=== PATIENT | female | born 1995 | race Caucasian/White ===

== ENCOUNTER 2018-03-16 17:37 | Emergency (ER) | payer BC ==
--- NOTE | 2018-03-16 18:09 | EDPHY ---
HPI/HX/ROS/PE/MDM Narrative: CHIEF COMPLAINT: Headache HISTORY OF PRESENT ILLNESS: The patient is a 22 y/o female complaining of a headache onset 5 days ago. Starting 2 weeks ago she had a cold and developed heart palpitations associated with chest pain. The heart palpitations occur for 1-2 minutes and feel like her heart is beating too hard and too fast. Around this time she also decreased her caffeine use. After her cold-like symptoms improved she had blood work done at her functional physician (PCP) who then ordered a pituitary MRI, which she had done yesterday. For the first day of the headache it was intermittent. For the last 4 days the headache has been constant and she has felt dizzy. The headache is located behind her eyes and occasionally radiates to her temples and the base of her skull. She took Motrin without relief of her symptoms and states that nothing makes her symptoms better. Tonight light has aggravated her headache. Several months ago she had a similar headache which they thought was due to coughing too much. Patient denies a history of migraines. She has no further cold symptoms. No history of confusion. No vomiting the headache. No family history of aneurysmal brain bleed. No head trauma. No fever, chills, chest pain, shortness of breath, vomiting, diarrhea, urinary complaints, lightheadedness. REVIEW OF SYSTEMS: Aside from elements discussed in the HPI, a comprehensive 10-system review of systems was reviewed and is negative. PAST MEDICAL HISTORY: Hypothyroidism SOCIAL HISTORY: Single, friend at bedside, lives in [place] VITAL SIGNS: Reviewed by me VITAL SIGNS Reviewed by me. GENERAL: Well-developed, well-nourished, resting in a dark room. HEENT: Atraumatic. Eyes: PERRL, EOMI, no nystagmus. No icterus. No injection. Tenderness to percussion over the left frontal sinus. Mouth: moist mucous membranes. No erythema or lesions. Neck: No meningitis. Nontender to palpation. No adenopathy. Negative Kernig's. Negative Brudzinski's. No meningismus. LUNGS: Clear to auscultation bilaterally, no wheezes, rhonchi or rales. CARDIAC: Mild tachycardia, regular rhythm, no rubs, murmurs or gallops. ABDOMEN: Soft, nontender, nondistended, bowel sounds normal. BACK: No CVA tenderness. EXTREMITIES: No trauma. No edema. Range of motion is normal throughout. NEURO: Alert and oriented, cranial nerves II through XII are intact. Motor strength 5 over 5 in all major muscle groups. Sensation intact to light touch. Normal gait. SKIN: Warm and dry, no rash. PSYCHIATRIC: Normal mentation, no agitation. Portions of this note were transcribed by a medical transcriptionist. I personally performed a history, physical exam, medical decision making, and confirmed accuracy of information the transcribed note. ED Course: The patient is a 22 y/o female presenting with a headache onset 5 days ago and heart palpitations onset 2 weeks ago. On exam she has left frontal sinus tenderness to percussion. She also had a pituitary MRI ordered by her PCP yesterday. Migraine medications including Decadron 10 mg, Reglan 10 mg, 30mg IV Toradol and 25mg IV Benadryl ordered; labs and head CT ordered. 1849: Patient is tachycardic with a rate in the 170's, tremulous, and hyperventilating after receiving Toradol and Benadryl; EKG and 0.5mg IV Ativan ordered. She did not receive the Decadron or rate prior to the abrupt change in her vital signs. My examination she is anxious and hyperventilating; on a monitored appears to be sinus tachycardia however, EKG was not able to be obtained due to her tremulousness. When EKG was obtained her rate was closer to the 140 region. Monitor strips were reviewed. SVT versus sinus tachycardia is my interpretation of the monitor strip. 1850: 12-LEAD EKG: Please see the full report in [facility]. My interpretation: Sinus tachycardia with a rate of 134. 1929: Patient was too anxious for the CT; additional 1mg IV Ativan administered. 1951: MRI from health images was uploaded to our PACS system and read by Dr. Gay. Brain is normal with the exception of sphenoid sinus. The patient's pituitary gland looks normal. She is still has mildly tachycardic with a rate of 102 and her TSH is still pending. 2024: I spoke with the radiologist who reports that the patient has a normal head CT. 2044: Reassessed patient and discussed imaging reports. She is feeling improved after the Toradol and Benadryl. Heart rate has trended to under 100. Electrolytes are unremarkable. Patient's TSH today is normal. I did review her labs from her functional medicine physician which demonstrate normal TSH on 2 prior occasions. Patient will follow up with Cardiology concerning her palpitations and the event today with significant increased heart rate. I have also advised her to follow up with Endocrinology in given referral to Dr. Rashid as per her request. Regarding her headache, believe it is most likely related to sinusitis. She has improved with Toradol. I do not believe the patient needs further imaging studies or further evaluation with a LP. She understands reasons to return to the emergency department. MDM: After history was obtained, and the physical exam performed, a differential for headache was considered including, but not limited to, subarachnoid hemorrhage, migraine headache, tension headache and infectious causes such as meningitis, sinusitis, encephalitis. Differential diagnoses for the patient's sensation of palpitations was considered including but not limited to sinus tachycardia, PACs, PVCs, SVT, atrial fibrillation, atrial flutter, anxiety, panic attack. - Data Points Imaging Results: CT Head: Impression: Normal noncontrast CT of the brain. Results called to Dr. Dr. Tamie Luna at 8:25 PM. at the time of the interpretation. Dictated By: Bob Gay MD Imaging: Discussed imaging studies w/ call person Radiologist Laboratory Results: Laboratory Results 03/16/18 18:26 03/16/18 18:26 Medications Given: Discontinued Medications Dexamethasone (Decadron Injection) 10 mg IVP EDNOW ONE Stop: 03/16/18 18:27 Last Admin: 03/16/18 20:40 Dose: Not Given Diphenhydramine HCl (Benadryl Injection) 25 mg IVP EDNOW ONE Stop: 03/16/18 18:27 Last Admin: 03/16/18 18:36 Dose: 25 mg Sodium Chloride (Ns) 1,000 mls @ 0 mls/hr IV ONCE ONE; Wide Open PRN Reason: Protocol Stop: 03/16/18 18:27 Last Admin: 03/16/18 18:36 Dose: 1,000 mls Sodium Chloride (Ns) 1,000 mls @ 0 mls/hr IV ONCE ONE; Wide Open PRN Reason: Protocol Stop: 03/16/18 19:53 Last Admin: 03/16/18 20:08 Dose: 1,000 mls Ketorolac Tromethamine (Toradol) 30 mg IVP EDNOW ONE Stop: 03/16/18 18:27 Last Admin: 03/16/18 18:37 Dose: 30 mg Lorazepam (Ativan Injection) 0.5 mg IVP EDNOW ONE Stop: 03/16/18 18:48 Last Admin: 03/16/18 18:48 Dose: 0.5 mg Lorazepam (Ativan Injection) 1 mg IVP EDNOW ONE Stop: 03/16/18 19:28 Last Admin: 03/16/18 19:28 Dose: 1 mg Metoclopramide HCl (Reglan Injection) 10 mg IVP EDNOW ONE Stop: 03/16/18 18:27 Last Admin: 03/16/18 20:40 Dose: Not Given General Time Seen by Provider: 03/16/18 18:06 Initial Vital Signs: Initial Vital Signs Temperature (C) 36.4 C 03/16/18 17:44 Heart Rate 109 H 03/16/18 17:44 Respiratory Rate 18 03/16/18 17:44 Blood Pressure 123/66 H 03/16/18 17:44 O2 Sat (%) 100 03/16/18 17:44 O2 Delivery Mode Room Air Allergies/Adverse Reactions: No Known Allergies Allergy (Verified 03/17/18 12:20) Home Medications: Medication Instructions Recorded LORazepam [Ativan 1 mg (RX)] 1 mg PO Q6 PRN #5 tab 03/17/18 Departure - Departure Disposition: Home, Routine, Self-Care Clinical Impression: Tachycardia Headache Qualifiers: Headache type: unspecified Headache chronicity pattern: acute headache Intractability: not intractable Qualified Code(s): R51 - Headache Sinusitis Qualifiers: Sinusitis location: sphenoidal Chronicity: acute Recurrence: non-recurrent Qualified Code(s): J01.30 - Acute sphenoidal sinusitis, unspecified Condition: Good Instructions: Sinusitis (ED), Acute Headache (ED), Tachycardia (ED) Additional Instructions: Please obtained Flonase nasal spray. This is available [id number]. Use as directed. Please take Tylenol or ibuprofen for headache pain and facial pain. Mainstay of therapy will be to drink plenty of fluids, control your symptoms with [id number] medications, and get plenty of rest. Return to the emergency department or seek care urgently if you're symptoms are worsening despite the above treatment, if you develop shortness of breath, if you're unable to drink fluids secondary to throat pain or other issues, if you developed, vomiting, diarrhea, or other concerns. Follow-up with your primary doctor within 72 hours. Follow up with a package line operator for further testing, as soon as possible, within one week. Follow up with your unit assistant regarding your thyroid. Return to the Emergency Department for fever, chest pain, shortness of breath, increasing pain or other worsening of condition. Referrals: Padmini Rashid MD [[facility] [place] Provider] - As per Instructions (Dr. Rashid is a unit assistant. Please follow up with her if needed for further concerns regarding your thyroid.) Vance Jenkins MD [Medical Doctor] - As per Instructions (Dr Jenkins is a package line operator. Please follow up with him regarding your palpitations.) BEULAH EDEN [Other] - As per Instructions Report Scribed for: Tamie Luna Report Scribed by: Aleta Parker Date of Report: 03/16/18 Time of Report: 18:08
[2018-03-16] MEDS ORDERED: KETOROLAC 30 MG/1 ML SDV IVP ONE (18:26)
[2018-03-16] MEDS ORDERED: NS 1,000 ML IV ONE ×2 (18:26→19:52)
[2018-03-16] MEDS ORDERED: DEXAMETHASONE 10 MG/ML VIAL IVP ONE (18:26)
[2018-03-16] MEDS ORDERED: METOCLOPRAMIDE 10 MG/2 ML VIAL IVP ONE (18:26)
[2018-03-16 18:37] LABS: PLATELET COUNT 365 10^3/uL (150-400)
[2018-03-16] MEDS ORDERED: LORazepam 2 MG/ML INJ ONE ×2 (18:46→19:26)
[2018-03-16] MEDS ORDERED: LORazepam 2 MG/ML INJ IVP ONE ×2 (18:47→19:27)
[2018-03-16 21:26] VITALS: BP 103/68
== END 2018-03-16 21:26 | disposition home or self-care (01) ==
DX: R51 Headache (principal); R00.0 Tachycardia, unspecified; J01.30 Acute sphenoidal sinusitis, unspecified; E86.9 Volume depletion, unspecified
CPT/HCPCS: 96374; J1100; J1200; J1885; J2060; J2765

== ENCOUNTER 2018-03-17 12:16 | Emergency (ER) | payer BC ==
[2018-03-17] MEDS ORDERED: LORazepam 2 MG/ML INJ NASAL ONE (12:31)
--- NOTE | 2018-03-17 12:34 | EDPHY ---
H & P Stated Complaint: SOB bilat arms and legs "tingling" here yesterday w/CP workup Time Seen by Provider: 03/17/18 12:25 HPI/ROS: CHIEF COMPLAINT: "It was the Toradol" HISTORY OF PRESENT ILLNESS: 22-year-old female arrives via private vehicle with her brother complaining of hyperventilation, carpal pedal spasms, anxiety started this morning. She was seen in the ER last evening and evaluated for headache, had a CT done acutely as well as an MRI done sub acutely which were reviewed by the ER physician at that time. She was given multiple medications that time. She describes, shortly prior to arrival, developing carpal pedal spasms, hyperventilation. No headache. No nausea or vomiting. No photophobia. PRIMARY CARE PROVIDER: REVIEW OF SYSTEMS: 10 systems reviewed and negative with the exception of the elements mentioned in the history of present illness PAST MEDICAL & SURGICAL HISTORY: Hypothyroid. SOCIAL HISTORY:Single. FAMILY HISTORY: No pertinent family history PHYSICAL EXAM (Prior to examination, patient consented to physical exam, hands were washed and my usual and customary physical exam procedures followed) 1) GENERAL: Well-developed, well-nourished, alert and oriented. Eyes closed, hyperventilating. 2) HEAD: Normocephalic, atraumatic 3) HEENT: Pupils equal, round, reactive to light bilaterally. Sclera anicteric. Nasopharynx, oropharynx, clear, no lesions. Moist mucous membranes. Ears bilaterally with normal tympanic membranes. 4) NECK: Full range of motion, no meningeal signs. 5) LUNGS: Clear auscultation bilaterally, no wheezes, no rhonchi, no retractions. 6) HEART: Regular rate and rhythm, no murmur, no heave, no gallop. 7) ABDOMEN: No guarding, no rebound, no focal tenderness, negative McBurney's, negative Del Cid's, negative Rovsing's, negative peritoneal sign, 8) MUSCULOSKELETAL: Carpal pedal spasms noted. Moving all extremities, no focal areas of tenderness, no obvious trauma. No peripheral edema or discoloration. 9) BACK: No CVA tenderness, no midline vertebral tenderness, no fluctuance, no step-off, no obvious trauma, no visual or palpable abnormality. 10) SKIN: No rash, no petechiae. 11) Psychiatric: Patient is oriented X 3, there is no agitation. 12) NEURO: Awake, alert, and oriented to person, place and time. Answers questions appropriately. There were no obvious focal neurologic abnormalities. No cerebellar dysfunction. Cranial nerves 2 through to 12 intact. Normal steady gait. Upper and lower extremities bilaterally with strength 5 / 5, reflexes 2+. DIFFERENTIAL DIAGNOSIS: In no particular order, including but not limited to subarachnoid hemorrhage, migraine headache, tension headache and infectious causes such as meningitis, pharyngitis and sinusitis. The patient understands that this diagnosis is provisional and can never be 100% accurate. Usual and customary warnings were given concerning the clinical impression and all the patient's questions were answered. The patient was instructed to return to the emergency department should her symptoms worsen or return, or develop any new symptoms, otherwise to followup as directed in discharge instructions. This is a partial list of diagnoses considered. These considerations are based on history, physical exam, past history and reassessment. ] - Personal History LMP (Females 10-55): Unknown - Medical/Surgical History Hx Asthma: No Hx Chronic Respiratory Disease: No Hx Diabetes: No Hx Cardiac Disease: No Hx Renal Disease: No Hx Cirrhosis: No Hx Alcoholism: No Hx HIV/AIDS: No Hx Splenectomy or Spleen Trauma: No Other PMH: klebsiella, hypothyroidism - Social History Smoking Status: Never smoked Constitutional: Initial Vital Signs Temperature (C) 36.7 C 03/17/18 12:21 Heart Rate 112 H 03/17/18 12:21 Respiratory Rate 26 H 03/17/18 12:21 Blood Pressure 126/86 H 03/17/18 12:21 O2 Sat (%) 100 03/17/18 12:21 O2 Delivery Mode Room Air Allergies/Adverse Reactions: No Known Allergies Allergy (Verified 03/17/18 12:20) Home Medications: Medication Instructions Recorded LORazepam [Ativan 1 mg (RX)] 1 mg PO Q6 PRN #5 tab 03/17/18 Medical Decision Making ED Course/Re-evaluation: 12:31 p.m.: I reviewed the patient's old medical records including her ER report from yesterday which includes CT imaging and notation that the patient felt tremulous and was hyperventilating after Toradol Benadryl. At this time I recommended benzodiazepine I have offered oral, intramuscular intranasal and the patient requests intranasal administration. 1:09 p.m.: Re-evaluation after intranasal Ativan. Patient is sleeping. She will be allowed to rest and re-evaluated. 1:40 p.m.: Patient and brother requested I speak with their mother. Patient provided verbal consent to disclose medical information at this time and the for of us spoke via speaker phone at this time. I emphasized with the patient' s ongoing symptoms. I reviewed with the mother her normal TSH yesterday, CT and MRI results and improvement in symptoms after benzodiazepine administration. She remains slightly tachycardic between 105 and 110 at this time. She had an EKG yesterday which showed normal sinus rhythm. She has had no complaints of chest pain or dyspnea. Mother notes patient has had polyarthralgias for some time now specific etiology of which is unclear. In addition to her endocrinology referral which was given yesterday, provided the referral to rheumatology Dr. Gonzalez. At this time I think the patient can be discharged. Usual and customary discharge precautions instructions provided. - Data Points Medications Given: Discontinued Medications Lorazepam (Ativan Injection) 1 mg NASAL EDNOW ONE Stop: 03/17/18 12:32 Last Admin: 03/17/18 12:41 Dose: 1 mg Departure - Departure Disposition: Home, Routine, Self-Care Clinical Impression: Anxiety Condition: Good Instructions: Lorazepam (By mouth), Anxiety (ED) Additional Instructions: Seek medical attention if you develop return of symptoms or any other symptoms that concern you. Referrals: ANNMARIE FROST [Other] - As per Instructions Shay Gonzalez MD [[facility] Primary Care Provider] - As per Instructions Prescriptions: LORazepam [Ativan 1 mg (RX)] 1 mg PO Q6 PRN #5 tab PRN Reason: Anxiety
[2018-03-17 13:56] VITALS: BP 115/67
== END 2018-03-17 13:54 | disposition home or self-care (01) ==
DX: F41.9 Anxiety disorder, unspecified (principal); R06.4 Hyperventilation; R29.0 Tetany; E03.9 Hypothyroidism, unspecified
CPT/HCPCS: J2060